=== PATIENT | female | born 1930 | race Caucasian/White ===

== ENCOUNTER 2016-09-18 17:31 | Inpatient (IN) | payer MEDICARE, OTHER, MEDICAID ==
[~2016-09-18] VITALS: Ht 154.9 cm; Wt 55.0 kg
[2016-09-18] MEDS ORDERED: SODIUM CHLORIDE 0.9% 1L BAG IV* STA (18:34)
[2016-09-18 19:00] LABS: CONDITION 1; HEMATOCRIT 33.1 % (37.0-47.0); HEMOGLOBIN 10.6 g/dl (12.0-16.0); MEAN CORPUSCULAR HEMOGLOBIN 23.3 pg (29.0-33.0); MEAN CORPUSCULAR HGB CONC 31.9 g/dl (32.0-37.0); MEAN CORPUSCULAR VOLUME 72.9 fl (82.0-101.0); MEAN PLATELET VOLUME 9.6 fl (7.4-10.4); PLATELET COUNT 259 10^3/UL (140-440); RED BLOOD COUNT 4.54 10^6/ul (4.20-5.40); RED CELL DISTRIBUTION WIDTH 26.1 % (11.5-14.5); SUSPECT 1; UNCORRECTED WBC 31.2 10^3/ul (4.8-10.8); WHITE BLOOD COUNT 31.2 10^3/ul (4.8-10.8)
[2016-09-18] MEDS ORDERED: DILTIAZEM 25 MG INJ IV ONE (19:00)
[2016-09-18] MEDS ORDERED: DILTIAZEM-D5W 125MG/125ML DRIP 125 ML IV SCH (19:00)
[2016-09-18 19:07] LABS: INR 1.17; PARTIAL THROMBOPLASTIN TIME 25.6 Sec (25.0-35.0); PT RATIO 1.2
--- NOTE | 2016-09-18 19:23 | RADRPT ---
PROCEDURE: XR Chest. CLINICAL INDICATION: Possible sepsis. TECHNIQUE: Single frontal view of the chest was obtained COMPARISON: None FINDINGS: Cardiomegaly with atherosclerotic calcifications in the thoracic aorta. Portable technique, hypoinf lated lungs and body habitus accentuate pulmonary vascular markings. Mild air space disease at the left lung base. There is no pleural effusion or pneumothorax. IMPRESSION: 1. Cardiomegaly with atherosclerotic calcifications in the thoracic aorta. 2. Mild airspace disease at the left lung base, and findings may represent mild early left lung bas e pneumonia in setting of sepsis. RPTAT: [facility] Physician Keesha Date Time Electronically viewed and signed by Physician Keesha on 09/18/2016 19:23 RS/
[2016-09-18 19:40] LABS: LYMPHOCYTES # 0.6 10^3/ul (0.8-2.9); MONOCYTE # 1.2 10^3/ul (0.3-0.9); NEUTROPHIL # 24.6 10^3/ul (1.6-7.5)
[2016-09-18 19:41] LABS: OVALOCYTES 1+
[2016-09-18 19:47] LABS: ANION GAP 16 (8-16)
[2016-09-18 19:50] LABS: ALANINE AMINOTRANSFERASE 22 IU/L (13-69); ALBUMIN 2.8 g/dl (3.3-4.9); ALKALINE PHOSPHATASE 73 IU/L (42-121); ASPARTATE AMINO TRANSFERASE 29 IU/L (15-46); BILIRUBIN,INDIRECT 0.1 mg/dl (0-1.1); BILIRUBIN,TOTAL 0.1 mg/dl (0.2-1.3); BLOOD UREA NITROGEN 23 mg/dl (7-20); CALCIUM 8.4 mg/dl (8.4-10.2); CARBON DIOXIDE 24 mmol/L (21-31); CHLORIDE 97 mmol/L (97-110); CREATININE 0.83 mg/dl (0.44-1.00); GLUCOSE 113 mg/dl (70-220); SODIUM 132 mmol/L (135-144); TOTAL PROTEIN 5.9 g/dl (6.1-8.1)
[2016-09-18 20:08] LABS: TROPONIN-I < 0.012 ng/ml (0.00-0.12)
[2016-09-18 20:34] LABS: ADD UMIC YES; URINE BILIRUBIN (Dip) NEGATIVE (NEGATIVE); URINE BLOOD (Dip) 2+ (NEGATIVE); URINE COLOR YELLOW (YELLOW); URINE GLUCOSE (Dip) NEGATIVE (NEGATIVE); URINE KETONES (Dip) NEGATIVE (NEGATIVE); URINE LEUKOCYTE ESTERASE (Dip) NEGATIVE (NEGATIVE); URINE NITRITE (Dip) NEGATIVE (NEGATIVE); URINE TOTAL PROTEIN (Dip) TRACE (NEGATIVE); URINE UROBILINOGEN (Dip) 0.2 E.U./dL (0.1-1.0)
[2016-09-18 20:59] LABS: MUCUS,URINE MODERATE; SQUAMOUS EPITHELIAL CELL,UR FEW
[2016-09-18] MEDS ORDERED: CEFTRIAXONE 1 GM/50 ML (PMX) 50 ML IVPB ONE (21:00)
[2016-09-18] MEDS ORDERED: VANCOMYCIN 1 GM (PMX) 250 ML IVPB SCH (21:30)
[2016-09-18] MEDS ORDERED: ONDANSETRON 4 MG INJ IV PRN (23:00)
[2016-09-18] MEDS ORDERED: ACETAMINOPHEN 325 MG TAB PO PRN (23:00)
[2016-09-18 23:05] VITALS: TEMP 99.9
[2016-09-18] MEDS ORDERED: FER325 PO (23:30)
[2016-09-18] MEDS ORDERED: SACC250C PO (23:30)
[2016-09-18] MEDS ORDERED: FERR325T28 PO (23:30)
[2016-09-18] MEDS ORDERED: VITA1CAP PO (23:30)
[2016-09-19] VITALS (12 sets, daily range): BP systolic 105–129; BP diastolic 53–82; PULSE 68–109; RESP 16–20; Ht 154.9 cm; Wt 55.0 kg
--- NOTE | 2016-09-19 00:15 | ERD ---
ER Documentation Chief Complaint Date/Time DATE: 09/18/16 TIME: 23:56 Chief Complaint LOW OXYGENATION AT THE FACILITY DENIES PAIN HPI This 86-year-old female is sent for having low oxygen at her custodial facility. Paramedics were unsure what the oxygen level was. Patient herself has no complaints currently. She does suffer from dementia. She is not a good historian although denies pain, shortness of breath, does admit to having a cough. I reviewed the paperwork sent with her and see that she was diagnosed with a nitrite positive urinary tract infection on the of this month. On the she has a CBC significant for white blood cell count of 30. ROS All systems reviewed and are negative except as per history of present illness however the patient is unreliable. Medications Home Meds Reported Medications Saccharomyces Boulardii* (Florastor*) 250 Mg Cap, 250 MG PO DAILY 09/18/16 Vitamin B Complex (Vitamin B Complex) 1 Each Capsule, 1 EACH PO 09/18/16 Ferrous Gluconate* (Ferrous Gluconate*) 325 Mg Tablet, 325 MG PO TID 09/18/16 Ferrous Sulfate* (Ferrous Sulfate*) 325 Mg Tabec, 325 MG PO DAILY 09/18/16 Allergies Allergies: Coded Allergies: azithromycin (Verified Allergy, Mild, rash, 09/18/16) PMhx/Soc Hx Alcohol Use: No Hx Substance Use: No Hx Tobacco Use: No Smoking Status: Former smoker Physical Exam Vitals Vital Signs Date Time Temp Pulse Resp B/P Pulse Ox O2 Delivery O2 Flow Rate FiO2 09/18/16 23:05 99.9 78 20 110/74 98 Nasal Cannula 2.0 09/18/16 20:55 89 20 107/68 100 Nasal Cannula 2.0 09/18/16 20:45 98 2.0 28 09/18/16 20:30 100.0 93 24 120/48 100 Nasal Cannula 2.0 09/18/16 20:15 94 18 107/62 100 Nasal Cannula 2.0 09/18/16 20:00 96 18 111/69 100 Nasal Cannula 2.0 09/18/16 19:45 96 18 123/69 100 Nasal Cannula 2.0 09/18/16 19:30 102 110/62 09/18/16 19:15 96 18 114/67 100 Nasal Cannula 2.0 09/18/16 18:44 Nasal Cannula 2 09/18/16 18:44 100.1 127 22 113/62 98 09/18/16 18:09 98.2 134 22 98 Physical Exam Const: [] No distress Head: Atraumatic Eyes: Normal Conjunctiva on the EOMI, PERRLA ENT: Normal External Ears, Nose and Mouth. Neck: Full range of motion..~ No meningismus. Resp: Decreased bibasilar breath sounds Cardio: Regular rate and rhythm, no murmurs Abd: Soft, non tender, non distended. Normal bowel sounds Skin: No petechiae or rashes Back: No midline or flank tenderness Ext: No cyanosis, or edema Neur: Awake and alert and oriented 2, no focal deficits Psych: Normal Mood and Affect Result Diagram: 09/18/16 1800 09/18/16 1800 Results 24 hrs Laboratory Tests Test 09/18/16 18:00 09/18/16 20:14 09/18/16 20:50 09/18/16 22:45 Activated Partial Thromboplast Time 25.6Sec Alanine Aminotransferase (ALT/SGPT) 22IU/L Albumin 2.8g/dl Albumin/Globulin Ratio 0.90 Alkaline Phosphatase 73IU/L Anion Gap 16 Aspartate Amino Transf (AST/SGOT) 29IU/L Band Neutrophils % 15.0% Blood Morphology Comment Blood Urea Nitrogen 23mg/dl Calcium Level 8.4mg/dl Carbon Dioxide Level 24mmol/L Chloride Level 97mmol/L Creatinine 0.83mg/dl Direct Bilirubin 0.00mg/dl Globulin 3.10g/dl Glucose Level 113mg/dl Hematocrit 33.1% Hemoglobin 10.6g/dl INR International Normalized Ratio 1.17 Indirect Bilirubin 0.1mg/dl Lactic Acid Level 2.2mmol/L 1.4mmol/L 1.3mmol/L Lymphocytes # 0.610^3/ul Lymphocytes % 2.0% Mean Corpuscular Hemoglobin 23.3pg Mean Corpuscular Hemoglobin Concent 31.9g/dl Mean Corpuscular Volume 72.9fl Mean Platelet Volume 9.6fl Monocytes # 1.210^3/ul Monocytes % 4.0% Neutrophils # 24.610^3/ul Neutrophils % 79.0% Ovalocytes 1+ Platelet Count 40967^3/UL Potassium Level 5.0mmol/L Prothrombin Time 15.0Sec Prothrombin Time Ratio 1.2 Red Blood Count 4.5410^6/ul Red Cell Distribution Width 26.1% Sodium Level 132mmol/L Total Bilirubin 0.1mg/dl Total Protein 5.9g/dl Troponin I < 0.012ng/ml White Blood Count 31.210^3/ul Urine Bilirubin NEGATIVE Urine Clarity SLIGHTLY CLOUDY Urine Color YELLOW Urine Glucose NEGATIVE% Urine Hemoglobin 2+ Urine Ketones NEGATIVE Urine Leukocyte Esterase NEGATIVE Urine Microscopic RBC 10-25/HPF Urine Microscopic WBC 0-2/HPF Urine Mucus MODERATE Urine Nitrite NEGATIVE Urine Specific [place] >=1.030 Urine Squamous Epithelial Cells FEW Urine Total Protein TRACE Urine Urobilinogen 0.2 E.U./dL Urine pH 5.5 Current Medications Medications (Trade) Dose Ordered Sig/Teri Route PRN Reason Start Time Stop Time Status Last Admin Dose Admin Sodium Chloride (NS) 1,770 ml BOLUS OVER 2 HOURS STAT IV* 09/18/16 18:34 09/18/16 18:35 DC 09/18/16 19:05 Diltiazem HCl 15 mg 15 mg ONCE ONCE IV 09/18/16 19:00 09/18/16 19:01 DC 09/18/16 19:04 Diltiazem HCl 125 ml @ 5 mls/hr TITRATE IV 09/18/16 19:00 09/18/16 19:04 Ceftriaxone Sodium 50 ml @ 100 mls/hr ONCE ONCE IVPB 09/18/16 21:00 09/18/16 21:29 DC 09/18/16 20:47 Vancomycin HCl (Vancocin) 250 ml @ 125 mls/hr ONCE IVPB 09/18/16 21:30 09/18/16 23:29 DC 09/18/16 22:35 Ondansetron HCl (Zofran Inj) 4 mg ER BRIDGE PRN IV NAUSEA AND/OR VOMITING 09/18/16 23:00 09/19/16 22:59 Acetaminophen (Tylenol Tab) 650 mg ER BRIDGE PRN PO MILD PAIN/FEVER 09/18/16 23:00 09/19/16 22:59 Procedures/MDM Elderly female with pneumonia with sepsis. Also possibly still has urinary traction infection as well. Presented in A. fib with RVR. She was given a Cardizem bolus of 15 mg IV as well as placed on a Cardizem drip which controlled her A. fib as well. Diagnoses of sepsis was made approximately 90 minutes after her arrival in the white blood cell count returned elevated. Patient has no elevated lactic acid or significant distress to suggest overwhelming bacterial infection. Patient did have laboratories 4 days ago which showed a white blood cell count of 30. This is possibly not secondary to acute infection. She also does have microcytic anemia. She was given Rocephin and vancomycin emergency room is being admitted for further management. Patient 's primary care doctor is covered by Dr. Leopoldo Orantes and I spoke with and accepted the admission to telemetry. EKG interpretation: A. fib with RVR rate of 137, left bundle branch block, left axis deviation, no ST-T wave changes concerning for acute ischemia personnel monitor interpretation: A. fib with RVR followed by rate control A. fib , no other arrhythmias. Chest x-ray interpretation: Left lower lobe pneumonia with no pulmonary edema, no pneumothorax, no fractures. Critical care time 33 minutes: This includes treatment of A. fib with RVR and a patient with sepsis criteria, careful fluid administration, antibiotic selection , use of vasoactive medications Cardizem, although this patient's bedside assess status, chart review, discussion with admitting doctor and patient. Not including billable procedures. Departure Diagnosis: Primary Impression: Atrial fibrillation with RVR Additional Impressions: Sepsis due to pneumonia Microcytic anemia Hyponatremia Condition: Serious MARGO TYLER DO Sep 19, 2016 00:06
[2016-09-19] MEDS ORDERED: SOD CHLORIDE 0.9% 250 ML IV ONE (00:30)
[2016-09-19] MEDS ORDERED: SOD CHLORIDE 0.9% 500 ML IV ONE (00:30)
[2016-09-19] MEDS ORDERED: ZOLPIDEM 5 MG TAB PO PRN (01:30)
[2016-09-19] MEDS ORDERED: VANCOMYCIN IV PER PHARMACY XX SCH (01:30)
[2016-09-19] MEDS ORDERED: traMADol 50 MG TAB PO PRN (01:30)
[2016-09-19] MEDS ORDERED: ACETAMINOPHEN 500 MG TAB PO PRN (01:30)
[2016-09-19] MEDS: PIPER-TAZO 3.375 GM IV (PMX) 100 ML IVPB SCH ×3 (02:28→17:38)
[2016-09-19] MEDS: ALBUTEROL 0.5% (NEB) 2.5 MG/0.5 ML AMP HHN SCH ×5 (05:26→20:21)
[2016-09-19 07:11] LABS: EOSINOPHILS # 0.1 10^3/ul (0.0-0.5); EOSINOPHILS % 0.6 % (0.0-7.0); HEMATOCRIT 30.8 % (37.0-47.0); HEMOGLOBIN 10.1 g/dl (12.0-16.0); LYMPHOCYTES # 1.1 10^3/ul (0.8-2.9); LYMPHOCYTES % 4.7 % (15.0-51.0); MEAN CORPUSCULAR HEMOGLOBIN 23.9 pg (29.0-33.0); MEAN CORPUSCULAR HGB CONC 32.7 g/dl (32.0-37.0); MEAN CORPUSCULAR VOLUME 73.1 fl (82.0-101.0); MEAN PLATELET VOLUME 8.9 fl (7.4-10.4); MONOCYTE # 0.3 10^3/ul (0.3-0.9); MONOCYTES % 1.2 % (0.0-11.0); NEUTROPHIL # 21.1 10^3/ul (1.6-7.5); NEUTROPHILS % 93.5 % (39.0-77.0); PLATELET COUNT 235 10^3/UL (140-440); RED BLOOD COUNT 4.21 10^6/ul (4.20-5.40); RED CELL DISTRIBUTION WIDTH 25.8 % (11.5-14.5); UNCORRECTED WBC 22.5 10^3/ul (4.8-10.8); WHITE BLOOD COUNT 22.5 10^3/ul (4.8-10.8)
[2016-09-19 07:13] LABS: CONDITION 1; LH ANALYZER COMMENTS 1; SUSPECT 1
[2016-09-19 07:15] LABS: INR 1.3; PROTIME 16.3 Sec (12.2-14.2); PT RATIO 1.3
[2016-09-19 07:35] LABS: ALBUMIN 2.4 g/dl (3.3-4.9)
[2016-09-19 07:38] LABS: ALBUMIN/GLOBULIN RATIO 0.85; BILIRUBIN,INDIRECT 0.2 mg/dl (0-1.1); BILIRUBIN,TOTAL 0.2 mg/dl (0.2-1.3); CREATININE 0.9 mg/dl (0.44-1.00); TOTAL PROTEIN 5.2 g/dl (6.1-8.1)
[2016-09-19 07:39] LABS: CALCIUM 7.8 mg/dl (8.4-10.2)
[2016-09-19 08:30] LABS: ANISOCYTOSIS 3+; HYPOCHROMASIA 3+; MICROCYTOSIS 2+
[2016-09-19] MEDS: PAROXETINE 10 MG TAB PO SCH (09:28)
--- NOTE | 2016-09-19 11:10 | HP ---
DATE OF ADMISSION: 09/18/2016 CHIEF COMPLAINT AND HISTORY OF PRESENT ILLNESS: The patient is an 86-year-old lady [facility] and patient was evaluated in the emergency room and w as admitted. The patient apparently has dementia and history was obtained after discussing with the patient who appears to be awake and alert. The patient was apparently hospitalized on 08/31/2016 a t [facility] by her PMD and per prior medical records, the patient has had prior history of GI bleeding after colon with a chronic bleed, status post blood transfusions in the past, his tory of rheumatoid arthritis, history of endocarditis, status post valve replacement with bovine ivette ve. Has been off anticoagulation in view of the recurrent GI bleeds, and the patient had been trans fused at [facility] and CT scan of the brain at that time was negative. MEDICATIONS: Include: 1. Florastor. 2. Ferrous gluconate. 3. Prednisone. 4. Claritin. 5. Lasix. FAMILY HISTORY: Negative for diabetes, hypertension or cancer. SOCIAL HISTORY: The patient states she was for about a month, got , has no children. 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 ALLERGIES: AZITHROMYCIN. HABITS: Does not smoke at the present time, was a prior smoker. PHYSICAL EXAMINATION: GENERAL: On physical exam, patient was found to be febrile to 100. VITAL SIGNS: Blood pressure 120/48, O2 saturation 100% on 2 liters nasal O2. HEENT: Head normocephalic. Moderate pallor without cyanosis or icterus. Tongue is coated, dry. NECK: Supple. No thyromegaly or bruits. HEART: S1, S2 heard with no definite gallops. While patient was in the ER, she was in atrial fibri llation with rapid ventricular response, given Cardizem bolus with good control of her ventricular r ate. CHEST: Decreased breath sounds at bases with few rhonchi. HEART: S1, S2 heard. No definite gallops. ABDOMEN: Soft, nontender, no hepatosplenomegaly. EXTREMITIES: No edema. Pedals 2+ bilaterally. Homans sign negative. NEUROLOGIC: No localizing or lateralizing signs. LABORATORY DATA: Initial WBC count 31.2 with hematocrit 33.1, MCV 72.9, neutrophils 79, bands . Sodium 132, potassium 5, BUN 23, creatinine 0.83, lactic acid 2.2. Urinalysis shows 10 to 25 RBC s, urine hemoglobin 2+, nitrites negative. Chest x-ray shows left lower lobe infiltrate. IMPRESSION: 1. Leukemoid reaction with sepsis with pneumonia left lower lobe. 2. Status post atrial fibrillation with rapid ventricular response. 3. Microcytic anemia secondary to iron deficiency, status post prior gastrointestinal bleeds. 4. History of rheumatoid arthritis. 5. Prior history of endocarditis. PLAN: The patient will be admitted to telemetry. Continue vancomycin and Zosyn. Obtain blood cult ures and urine cultures. Closely observe for signs of failure. The patient may have an underlying myelodysplastic disorder. We will closely monitor for same. Obtain LDH levels and consider echocar diogram in due course. Dictated By: DEBRA ARANA MD, SR/DANNI Conf#: [id number] DID#: [id number]
[2016-09-19] MEDS ORDERED: VANCOMYCIN 1 GM in NS 250 ML IVPB SCH (22:00)
[2016-09-20] VITALS (11 sets, daily range): BP systolic 98–126; BP diastolic 57–65; PULSE 65–116; RESP 18
[2016-09-20] MEDS: ALBUTEROL 0.5% (NEB) 2.5 MG/0.5 ML AMP HHN SCH ×6 (00:41→20:26)
[2016-09-20] MEDS: PIPER-TAZO 3.375 GM IV (PMX) 100 ML IVPB SCH ×3 (01:40→18:29)
[2016-09-20 06:48] LABS: HEMATOCRIT 28.8 % (37.0-47.0); HEMOGLOBIN 9.4 g/dl (12.0-16.0); MEAN CORPUSCULAR HEMOGLOBIN 23.8 pg (29.0-33.0); MEAN CORPUSCULAR HGB CONC 32.5 g/dl (32.0-37.0); MEAN CORPUSCULAR VOLUME 73.3 fl (82.0-101.0); PLATELET COUNT 226 10^3/UL (140-440); RED BLOOD COUNT 3.93 10^6/ul (4.20-5.40); RED CELL DISTRIBUTION WIDTH 26.4 % (11.5-14.5); UNCORRECTED WBC 18.3 10^3/ul (4.8-10.8); WHITE BLOOD COUNT 18.3 10^3/ul (4.8-10.8)
[2016-09-20 06:51] LABS: ALBUMIN 2.3 g/dl (3.3-4.9)
[2016-09-20 06:52] LABS: POTASSIUM 3.5 mmol/L (3.5-5.1)
[2016-09-20 06:54] LABS: ALBUMIN/GLOBULIN RATIO 0.82; CREATININE 0.96 mg/dl (0.44-1.00); TOTAL PROTEIN 5.1 g/dl (6.1-8.1)
[2016-09-20 06:56] LABS: CONDITION 1; LH ANALYZER COMMENTS 1; SUSPECT 1
[2016-09-20 07:25] LABS: THYROID STIMULATING HORMONE 1.85 MIU/L (0.465-4.680)
[2016-09-20 08:22] LABS: BASOPHIL # 0.4 10^3/ul (0.0-0.1); EOSINOPHILS # 0.2 10^3/ul (0.0-0.5); MONOCYTE # 0.7 10^3/ul (0.3-0.9)
[2016-09-20] MEDS: PAROXETINE 10 MG TAB PO SCH (09:00)
[2016-09-20 11:57] LABS: LH ANALYZER COMMENTS 1
--- NOTE | 2016-09-20 12:31 | CONS ---
Date/Time of Note Date/Time of Note DATE: 09/20/16 TIME: 12:23 Assessment/Plan Assessment/Plan Chief Complaint/Hosp Course 1) possible pneumonia by report and symptoms repeat CXR continue with tarah since she is from a detention change [facility] to [facility] for cover for MRSA and atypicals check procalcitonin check rapid influenza screen 2) Diarrhea [employer] with high WBC check stool for c.dif 3) dementia 4) hx of SBE and valve replacement which pt is not aware of Problems: Consultation Date/Type/Reason Admit Date/Time Sep 18, 2016 at 22:41 Date of Consultation: Sep 20, 2016 Type of Consultation: ID Hx of Present Illness pt comes in 2 days ago due to SOB which she states is better she has a cough that is non productive She had c/o fatigue too No N, V She states she has chronic diarrhea at the detention but only one soft stool this day but they were watery yesterday No abd pain, CP, GAMEZ, joint pains, muscle aches she has a sore throat Past Medical History SBE, RA, dementia Past Surgical History valve replacement Social History Smoking Status: Never smoker Exam/Review of Systems Vital Signs Vitals Vital Signs Date Time Temp Pulse Resp B/P Pulse Ox O2 Delivery O2 Flow Rate FiO2 09/20/16 12:17 80 20 99 21 09/20/16 11:34 98.1 126/65 09/19/16 20:15 Nasal Cannula 2.0 Intake and Output 09/19/16 09/19/16 09/20/16 15:00 23:00 07:00 Intake Total 600 ml 900 ml Balance 600 ml 900 ml Exam Constitutional: alert Psych: no complaints Head: normocephalic Eyes: nl conjunctiva, nl sclera ENMT: mucosa pink and moist Neck: supple Respiratory: clear to auscultation Cardiovascular: regular rate and rhythm Gastrointestinal: non-tender, soft Musculoskeletal: nl extremities to inspection Neurological: other (pt has poor memory, but is cooperative) Results Result Diagram: 09/20/16 0541 09/20/16 0541 Results 24 hrs Laboratory Tests Test 09/20/16 05:41 Alanine Aminotransferase (ALT/SGPT) 24 Albumin 2.3 L Albumin/Globulin Ratio 0.82 Alkaline Phosphatase 69 Anion Gap 11 Aspartate Amino Transf (AST/SGOT) 15 Basophils # 0.4 H Basophils % 2.0 Blood Morphology Comment Blood Urea Nitrogen 13 Calcium Level 8.0 L Carbon Dioxide Level 26 Chloride Level 101 Creatinine 0.96 Direct Bilirubin 0.00 Eosinophils # 0.2 Eosinophils % 1.0 Globulin 2.80 Glucose Level 91 Hematocrit 28.8 L Hemoglobin 9.4 L Indirect Bilirubin 0.0 Lymphocytes # 2.0 Lymphocytes % 11.0 L Mean Corpuscular Hemoglobin 23.8 L Mean Corpuscular Hemoglobin Concent 32.5 Mean Corpuscular Volume 73.3 L Mean Platelet Volume 9.0 Monocytes # 0.7 Monocytes % 4.0 Neutrophils # 15.0 H Neutrophils % 82.0 H Platelet Count 226 Potassium Level 3.5 Red Blood Count 3.93 L Red Cell Distribution Width 26.4 H Sodium Level 134 L Thyroid Stimulating Hormone (TSH) 1.850 Thyroxine (T4) 4.9 L Total Bilirubin 0.0 L Total Protein 5.1 L White Blood Count 18.3 H Medications Medications Current Medications Piperacillin Sod/ Tazobactam Sod (Zosyn 3.375gm/ 100 ml (Pmx)) 100 ml @ 25 mls/ hr TID@02,10,18 IVPB Last administered on 09/20/16 09:04; Admin Dose 25 MLS/HR ; Start 09/19/16 at 02:00 Acetaminophen (Tylenol Tab) 500 mg Q4H PRN PO PAIN AND OR ELEVATED TEMP; Start 09/19/16 at 01:30 Zolpidem Tartrate (Ambien) 5 mg HS PRN PO INSOMNIA; Start 09/19/16 at 01:30 Paroxetine HCl (Paxil) 10 mg DAILY PO Last administered on 09/20/16 09:00; Admin Dose 10 MG; Start 09/19/16 at 09:00 Tramadol HCl 50 mg 50 mg TID PRN PO PAIN; Start 09/19/16 at 01:30 Vancomycin HCl (Vancocin) 250 ml @ 125 mls/hr Q24H IVPB Last administered on 22:25; Admin Dose 125 MLS/HR; Start 09/19/16 at 22:00 MONICA ROWLAND MD Sep 20, 2016 12:31
--- NOTE | 2016-09-20 14:22 | RADRPT ---
PROCEDURE: XR Chest. CLINICAL INDICATION: Pneumonia TECHNIQUE: Chest AP portable COMPARISON: 09/18/2016 FINDINGS: Sternotomy and CABG. Lower cervical posterior fixation. The mediastinal structures are unremarkable. There is calcification of the thoracic aorta (consiste nt with atherosclerosis). The heart is normal in size and configuration. The pulmonary vascularity is normal. The lung patricia are unremarkable. No consolidation is identified. The pleural spaces are unremarkable. There are senescent changes of the axial skeleton. IMPRESSION: Calcification of the thoracic aorta (consistent with atherosclerosis). No evidence for active cardiopulmonary disease. RPTAT: HGDB .Kyrie Frias MD, Date Time Electronically viewed and signed by .Kyrie Frias MD, MD on 09/20/2016 14:22 .B/
--- NOTE | 2016-09-20 17:09 | PN ---
DATE: 09/20/2016 SUBJECTIVE: The patient is comfortable, denies any chest pain, shortness of breath. OBJECTIVE: VITAL SIGNS: Temperature 98.1, blood pressure 126/65, pulse rate 80 per minute, T-max 97, O2 sat 99 % on room air. HEENT: Normocephalic. Mild pallor without cyanosis or icterus. Tongue is coated. CHEST: Decreased breath sounds at bases. HEART: S1, S2 with no gallops. ABDOMEN: Soft, nontender, no hepatosplenomegaly. EXTREMITIES: No edema. NEUROLOGIC: No localizing or lateralizing signs. LABORATORY DATA: WBC of 18.3, hematocrit 28.8, platelets 226,000. Sodium 134, potassium 3.5, BUN 1 3, creatinine 0.96, albumin 2.3. Urine cultures mixed gram-positive organisms. MRSA screen negativ e. Blood cultures negative after 24 hours. IMPRESSION: 1. Leukemoid reaction with sepsis and pneumonia, left lower lobe. 2. Status post atrial fibrillation with rapid ventricular response. 3. Microcytic anemia, status post prior GI bleeds. 4. History of rheumatoid arthritis. 5. History of endocarditis. An ID consultation has been obtained with Dr. Alcantara and will closely ob serve the patient for sepsis. Stool for C. diff has been ordered as the patient has a prior history of diarrhea with leukocytosis closely monitor her rhythm. Positive for failure. Recheck labs in a .m. Dictated By: DEBRA ARANA MD, SR/NTS Conf#: [id number] DID#: [id number]
[2016-09-20] MEDS: DOXYCYCLINE 100 MG TAB PO SCH (20:22)
[2016-09-21] VITALS (12 sets, daily range): BP systolic 109–141; BP diastolic 55–66; PULSE 81–100; RESP 18–19
[2016-09-21] MEDS: ALBUTEROL 0.5% (NEB) 2.5 MG/0.5 ML AMP HHN SCH ×6 (00:23→20:47)
[2016-09-21] MEDS: PIPER-TAZO 3.375 GM IV (PMX) 100 ML IVPB SCH (02:03)
--- NOTE | 2016-09-21 07:46 | CONS ---
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 check stool for c.dif 09/21 - pt denies diarrhea but nurse reports there is and c.dif was sent off last night continue with probiotic 3) dementia 4) hx of SBE and valve replacement which pt is not aware of Problems: Consultation Date/Type/Reason Admit Date/Time Sep 18, 2016 at 22:41 Initial Consult Date 09/20/16 Type of Consultation: ID 24 HR Interval Summary Free Text/Dictation pt states her breathing is ok no N, V diarrhea is better according to the patient Exam/Review of Systems Vital Signs Vitals Vital Signs Date Time Temp Pulse Resp B/P Pulse Ox O2 Delivery O2 Flow Rate FiO2 09/21/16 04:27 85 09/21/16 04:08 18 21 09/21/16 04:00 97.9 141/63 96 09/20/16 20:16 Nasal Cannula 2.0 Intake and Output 09/20/16 09/20/16 09/21/16 15:00 23:00 07:00 Intake Total 820 ml 315 ml Balance 820 ml 315 ml Exam Constitutional: alert Head: normocephalic Eyes: nl conjunctiva ENMT: mucosa pink and moist Respiratory: other (L base crackles) Cardiovascular: regular rate and rhythm Gastrointestinal: non-tender, soft Results Result Diagram: 09/20/16 0541 09/20/16 0541 Medications Medications Current Medications Piperacillin Sod/ Tazobactam Sod (Zosyn 3.375gm/ 100 ml (Pmx)) 100 ml @ 25 mls/ hr TID@02,10,18 IVPB Last administered on 09/21/16t 02:03; Admin Dose 25 MLS/HR ; Start 09/19/16 at 02:00 Acetaminophen (Tylenol Tab) 500 mg Q4H PRN PO PAIN AND OR ELEVATED TEMP; Start 09/19/16 at 01:30 Zolpidem Tartrate (Ambien) 5 mg HS PRN PO INSOMNIA; Start 09/19/16 at 01:30 Paroxetine HCl (Paxil) 10 mg DAILY PO Last administered on 09/20/16 09:00; Admin Dose 10 MG; Start 09/19/16 at 09:00 Tramadol HCl (Ultram) 50 mg TID PRN PO PAIN; Start 09/19/16 at 01:30 Doxycycline Hyclate (Vibramycin) 100 mg BID PO Last administered on 09/20/16 20:22; Admin Dose 100 MG; Start 09/20/16 at 21:00 MONICA ROWLAND MD Sep 21, 2016 07:43
[2016-09-21 08:21] LABS: HEMATOCRIT 29.5 % (37.0-47.0); HEMOGLOBIN 9.3 g/dl (12.0-16.0); MEAN CORPUSCULAR HEMOGLOBIN 23.1 pg (29.0-33.0); MEAN CORPUSCULAR HGB CONC 31.3 g/dl (32.0-37.0); MEAN CORPUSCULAR VOLUME 73.6 fl (82.0-101.0); PLATELET COUNT 227 10^3/UL (140-440); RED BLOOD COUNT 4.01 10^6/ul (4.20-5.40); UNCORRECTED WBC 9.1 10^3/ul (4.8-10.8); WHITE BLOOD COUNT 9.1 10^3/ul (4.8-10.8)
[2016-09-21 08:32] LABS: CALCIUM 8.4 mg/dl (8.4-10.2); CREATININE 0.95 mg/dl (0.44-1.00)
[2016-09-21 08:34] LABS: CONDITION 1; LH ANALYZER COMMENTS 1; SUSPECT 1
[2016-09-21] MEDS: DOXYCYCLINE 100 MG TAB PO SCH ×2 (08:35→20:54)
[2016-09-21] MEDS: PAROXETINE 10 MG TAB PO SCH (08:35)
[2016-09-21] MEDS: AMOXICILLIN/CLAV 875 MG TAB PO SCH ×2 (08:35→20:54)
[2016-09-21 10:05] LABS: EOSINOPHILS # 0.3 10^3/ul (0.0-0.5); MONOCYTE # 0.2 10^3/ul (0.3-0.9); NEUTROPHIL # 7.3 10^3/ul (1.6-7.5)
[2016-09-21] MEDS: LACTOBACILLUS RHAMNOSUS CAP PO SCH ×2 (13:26→20:54)
--- NOTE | 2016-09-21 15:13 | PN ---
DATE: 09/21/2016 CHIEF COMPLAINT/HISTORY OF PRESENT ILLNESS: The patient overall feels better. Minimal cough. No ch est pain or shortness of breath. Apparently had 7 BMs today. Stool for C. diff negative so far. PHYSICAL EXAMINATION: GENERAL: The patient is in no acute distress. VITAL SIGNS: Temperature 97.5, blood pressure 109/66, O2 saturation 97% on 2 liters nasal cannula. HEENT: Head normocephalic. Mild pallor without cyanosis. LUNGS: Clinically clear. HEART: S1, S2 heard with no definite gallops. Irregular rhythm. ABDOMEN: Soft, nontender, no hepatosplenomegaly. EXTREMITIES: No edema. NEUROLOGIC: No localizing or lateralizing signs. LABORATORY DATA: Sodium 130, potassium 4, BUN 13, creatinine 0.95. WBC count 9.1, hematocrit 29.5, platelet count of 227,000. IMPRESSION: 1. Resolving pneumonia. 2. No evidence of C. diff infection. 3. Atrial fibrillation, well compensated. 4. Microcytic anemia, iron deficiency. 5. History of rheumatoid arthritis. PLAN: We will continue antibiotic recommendations per Dr. Alcantara and will get a PT evaluation for tra nsfer training and gait training. Dictated By: DEBRA ARANA MD SR/NTS Conf#: [id number] DID#: [id number]
[2016-09-22] VITALS (13 sets, daily range): BP systolic 115–144; BP diastolic 55–94; PULSE 81–99; RESP 18–20
[2016-09-22] MEDS: ALBUTEROL 0.5% (NEB) 2.5 MG/0.5 ML AMP HHN SCH ×6 (01:28→20:43)
[2016-09-22 06:38] LABS: POTASSIUM 3.6 mmol/L (3.5-5.1)
[2016-09-22 06:40] LABS: CREATININE 0.76 mg/dl (0.44-1.00)
[2016-09-22 06:41] LABS: CALCIUM 8.4 mg/dl (8.4-10.2)
[2016-09-22 07:13] LABS: EOSINOPHILS # 0.2 10^3/ul (0.0-0.5); EOSINOPHILS % 2.9 % (0.0-7.0); HEMOGLOBIN 9.3 g/dl (12.0-16.0); LYMPHOCYTES # 0.8 10^3/ul (0.8-2.9); MEAN CORPUSCULAR HEMOGLOBIN 23.5 pg (29.0-33.0); MEAN CORPUSCULAR VOLUME 73.5 fl (82.0-101.0); MEAN PLATELET VOLUME 8.3 fl (7.4-10.4); MONOCYTE # 0.5 10^3/ul (0.3-0.9); MONOCYTES % 6.2 % (0.0-11.0); NEUTROPHIL # 6.9 10^3/ul (1.6-7.5); NEUTROPHILS % 81.9 % (39.0-77.0); PLATELET COUNT 206 10^3/UL (140-440); RED BLOOD COUNT 3.94 10^6/ul (4.20-5.40); RED CELL DISTRIBUTION WIDTH 26.2 % (11.5-14.5); UNCORRECTED WBC 8.4 10^3/ul (4.8-10.8); WHITE BLOOD COUNT 8.4 10^3/ul (4.8-10.8)
[2016-09-22 07:15] LABS: CONDITION 1; LH ANALYZER COMMENTS 1; SUSPECT 1
[2016-09-22] MEDS: PAROXETINE 10 MG TAB PO SCH (08:16)
[2016-09-22] MEDS: DOXYCYCLINE 100 MG TAB PO SCH ×2 (08:16→21:33)
[2016-09-22] MEDS: LACTOBACILLUS RHAMNOSUS CAP PO SCH ×2 (08:16→21:34)
[2016-09-22] MEDS: AMOXICILLIN/CLAV 875 MG TAB PO SCH ×2 (08:16→21:34)
--- NOTE | 2016-09-22 08:47 | CONS ---
Date/Time of Note Date/Time of Note DATE: 09/22/16 TIME: 08:45 Assessment/Plan Assessment/Plan Chief Complaint/Hosp Course 1) possible pneumonia by report and symptoms repeat CXR continue with zosyn since she is from a assisted change vanco to doxy for cover for MRSA and atypicals check procalcitonin check rapid influenza screen 09/21 - pt feeling better, on RA repeat CXR is clear d/c zosyn and start augmentin, continue with doxy thru 09/26 neither flu Ag nor blood was done as ordered, nurse made aware 09/22 - flu Ag was negative continue with augmentin/doxycycline thru 09/26 I will sign off on case 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.dif 09/21 - pt denies diarrhea but nurse reports there is and c.dif was sent off last night continue with probiotic 09/22 - improved and c.dif was negative 3) dementia 4) hx of SBE and valve replacement which pt is not aware of Problems: Consultation Date/Type/Reason Admit Date/Time Sep 18, 2016 at 22:41 Initial Consult Date 09/20/16 Type of Consultation: ID 24 HR Interval Summary Free Text/Dictation pt states breathing is better No N, V, D Exam/Review of Systems Vital Signs Vitals Vital Signs Date Time Temp Pulse Resp B/P Pulse Ox O2 Delivery O2 Flow Rate FiO2 09/22/16 08:14 99 09/22/16 07:00 97.7 19 134/67 97 09/22/16 05:48 21 09/21/16 11:35 Nasal Cannula 2.0 Intake and Output 09/21/16 09/21/16 09/22/16 15:00 23:00 07:00 Intake Total 600 ml 240 ml Balance 600 ml 240 ml Exam Constitutional: alert, oriented Head: normocephalic Eyes: nl conjunctiva ENMT: mucosa pink and moist Respiratory: clear to auscultation Cardiovascular: regular rate and rhythm Gastrointestinal: non-tender, soft Results Result Diagram: 09/22/16 0600 09/22/16 0600 Results 24 hrs Laboratory Tests Test 09/22/16 06:00 Anion Gap 10 Basophils # 0.0 Basophils % 0.0 Blood Morphology Comment Blood Urea Nitrogen 12 Calcium Level 8.4 Carbon Dioxide Level 27 Chloride Level 104 Creatinine 0.76 Eosinophils # 0.2 Eosinophils % 2.9 Glucose Level 85 Hematocrit 29.0 L Hemoglobin 9.3 L Lymphocytes # 0.8 Lymphocytes % 9.0 L Mean Corpuscular Hemoglobin 23.5 L Mean Corpuscular Hemoglobin Concent 32.0 Mean Corpuscular Volume 73.5 L Mean Platelet Volume 8.3 Monocytes # 0.5 Monocytes % 6.2 Neutrophils # 6.9 Neutrophils % 81.9 H Nucleated Red Blood Cells # 0.0 Nucleated Red Blood Cells % 0.0 Platelet Count 206 Potassium Level 3.6 Red Blood Count 3.94 L Red Cell Distribution Width 26.2 H Sodium Level 137 White Blood Count 8.4 Medications Medications Current Medications Acetaminophen (Tylenol Tab) 500 mg Q4H PRN PO PAIN AND OR ELEVATED TEMP; Start 09/19/16 at 01:30 Zolpidem Tartrate (Ambien) 5 mg HS PRN PO INSOMNIA; Start 09/19/16 at 01:30 Paroxetine HCl (Paxil) 10 mg DAILY PO Last administered on 09/22/16 08:16; Admin Dose 10 MG; Start 09/19/16 at 09:00 Tramadol HCl (Ultram) 50 mg TID PRN PO PAIN; Start 09/19/16 at 01:30 Doxycycline Hyclate (Vibramycin) 100 mg BID PO Last administered on 09/22/16 08:16; Admin Dose 100 MG; Start 09/20/16 at 21:00 Amoxicillin/ Clavulanate Potassium (Augmentin) 875 mg BID PO Last administered on 09/22/16 08:16; Admin Dose 875 MG; Start 09/21/16 at 09:00 Lactobacillus Acidophilus/ Rhamnosus (Culturelle) 1 cap BID PO Last administered on 09/22/16 08:16; Admin Dose 1 CAP; Start 09/21/16 at 09:00 MONICA ROWLAND MD Sep 22, 2016 08:47
[2016-09-23] VITALS (8 sets, daily range): BP systolic 113–129; BP diastolic 59–65; PULSE 80–95; RESP 18–20
[2016-09-23] MEDS: ALBUTEROL 0.5% (NEB) 2.5 MG/0.5 ML AMP HHN SCH ×4 (00:51→13:00)
--- NOTE | 2016-09-23 06:56 | PN ---
DATE: 09/22/2016 SUBJECTIVE: Patient overall feels better when attempting to ambulate. Her heart rate went up to th e 150s. The patient denies any chest pain or shortness of breath at that time. VITAL SIGNS: Temperature 98.5, blood pressure 134/62, respiration is 20 per minute, O2 sat is 97% o n room air. HEENT: Normocephalic. JVD is not increased. CHEST: Decreased breath sounds at the bases. HEART: S1, S2 with no audible gallops. ABDOMEN: Soft, nontender, no hepatosplenomegaly. EXTREMITIES: No edema. LABORATORY DATA: WBC of 8.4, hematocrit 29.0, platelet count 206,000. Sodium 137, potassium 3.6, B UN 12, creatinine 0.76. IMPRESSION: 1. Resolving pneumonia. 2. Atrial fibrillation with rapid ventricular response. 3. History rheumatoid arthritis. 4. Microcytic anemia. PLAN: We will continue PT and monitor heart rate closely and if she is stable over the next 24 hour s, discharge after discussion with Dr. Em. Dictated By: DEBRA ARANA MD, SR/DANNI Conf#: [id number] DID#: [id number]
[2016-09-23] MEDS: LACTOBACILLUS RHAMNOSUS CAP PO SCH (08:15)
[2016-09-23] MEDS: DOXYCYCLINE 100 MG TAB PO SCH (08:15)
[2016-09-23] MEDS: PAROXETINE 10 MG TAB PO SCH (08:15)
[2016-09-23] MEDS: AMOXICILLIN/CLAV 875 MG TAB PO SCH (08:15)
--- NOTE | 2016-09-23 12:13 | PN ---
DATE: 09/23/2016 SUBJECTIVE: The patient overall feels better, had 1 BM today, loose, with no blood. No abdominal p ain, no chest pain or shortness of breath, no palpitations. PHYSICAL EXAMINATION: GENERAL: The patient is in no acute distress. VITAL SIGNS: Temperature 97.9, blood pressure 119/64, respiratory 20 per minute, heart rate 72 and regular. LUNGS: Clinically clear. HEART: S1, S2. No rubs or gallops. ABDOMEN: Soft, nontender. No hepatosplenomegaly. EXTREMITIES: No edema. Homans sign is negative. IMPRESSION: 1. Status post recent pneumonia. 2. Chronic anemia, prior history of GI bleed. The patient had a capsule study, the results of whic h are pending. 3. Atrial fibrillation. Controlled. 4. History of rheumatoid arthritis. The patient's overall condition is stable for discharge. Discharge planning has been initiated. I have discussed with the patient's niece, Lexi, regarding her condition. Dictated By: DEBRA ARANA MD, SR/DANNI Conf#: [id number] DID#: [id number]
== END 2016-09-23 16:30 | DRG 871 ==
LOC: E/R 17:31 → TEL 22:41
PROVIDERS: ADMIT Internal Medicine; ATTEND Internal Medicine
DX: A41.9 Sepsis, unspecified organism (principal); J18.9 Pneumonia, unspecified organism; I48.91 Unspecified atrial fibrillation; M06.9 Rheumatoid arthritis, unspecified; F03.90 Unspecified dementia, unspecified severity, without behavioral disturbance, psychotic disturbance, mood disturbance, and anxiety; D50.9 Iron deficiency anemia, unspecified; Z79.52 Long term (current) use of systemic steroids; R19.7 Diarrhea, unspecified; Z95.2 Presence of prosthetic heart valve
CPT/HCPCS: 36415; 71010; 80048; 80053; 81001; 81003; 83605; 84145; 84436; 84443; 84484; 85025; 85610; 85730; 87040; 87075; 87081; 87086; 87400; 93005; 94640; 94664; 96374; 96375; 97162; J0696; J2543; J3370; J7030; J7040